=== PATIENT | female | born 1960 | race Caucasian/White ===

== ENCOUNTER 2018-08-25 11:11 | Emergency (ER) | payer BC ==
[2018-08-25 11:32] VITALS: BP 153/91
--- NOTE | 2018-08-25 13:13 | UC ---
Skin Complaint HPI - HPI Summary HPI Summary: 57-year-old presents with a tick bite to her right chest wall. States she found the tick this morning and thinks that it was on for less than 24 hours since she removed another tick from her dog last evening. States the tick was not engorged. Her significant other attempted to remove however she thinks there is some retained mouthparts at the site of the bite. Denies fever, chills , flulike illness, myalgias, joint pain or swelling. - History of Current Complaint Chief Complaint: UCSkin Time Seen by Provider: 08/25/18 13:09 Stated Complaint: TICK BITE Pain Intensity: 4 - Allergy/Home Medications Allergies/Adverse Reactions: Allergies Allergy/AdvReac Type Severity Reaction Status Date / Time No Known Allergies Allergy Verified 08/25/18 11:32 Home Medications: Home Medications Estrogens, Conjugated [Premarin] 0.3 mg PO DAILY 08/25/18 [History Confirmed ] Review of Systems Constitutional: Negative Skin: Other - See HPI Respiratory: Negative Cardiovascular: Negative Musculoskeletal: Negative Is Patient Immunocompromised?: No All Other Systems Reviewed And Are Negative: Yes PMH/Surg Hx/FS Hx/Imm Hx Previously Healthy: Yes - Denies significant PMH - Surgical History Surgical History: Yes Surgery Procedure, Year, and Place: hysterectomy - Family History Family History: Noncontributory - Social History Occupation: Retired Lives: With Family Alcohol Use: Weekly Substance Use Type: None Smoking Status (MU): Never Smoked Tobacco Physical Exam Triage Information Reviewed: Yes Appearance: Well-Appearing, No Pain Distress, Well-Nourished Vital Signs: Initial Vital Signs Temp 98.6 F 08/25/18 11:27 Pulse 76 08/25/18 11:27 Resp 18 08/25/18 11:27 BP 153/91 08/25/18 11:27 Pulse Ox 99 08/25/18 11:27 Vital Signs Reviewed: Yes Respiratory: Positive: Lungs clear, Normal breath sounds Cardiovascular: Positive: RRR, No Murmur Musculoskeletal Exam: Normal Neurological: Positive: Alert Skin: Positive: Other - Single 1 cm erythematous, circular lesion with central excoriation and a single retained mouthpart to right chest wall. The mouth part was partially removed using splinter forceps. Very small piece remained superficially beneath the skin. Course/Dx - Course Course Of Treatment: 57 year old female with report of tick bite to right chest wall. She report that tick was on for less than 24 hours and not engorged however there was a retained mouth part from her significant other's attempt to remove and she was concerned that this would increase her risk of dejah Lyme. The retained mouth part was removed however there appeared to be a very small piece remaining under the skin that could not be removed. Patient was counseled that her history suggests a very small risk of Lyme transmission even with the retained mouthpart and that prophylactic treatment was not indicated. Patient was insistent upon treatment therefore single dose of doxycyline 200 mg was administered. She was further counseled that there was still need to monitor for symptoms of Lyme over next several weeks. Verbalizes understanding and agrees with POC. - Diagnoses Provider Diagnoses: Tick bite right chest, elevated blood pressure reading Discharge - Sign-Out/Discharge Documenting (check all that apply): Patient Departure All imaging exams completed and their final reports reviewed: No Studies - Discharge Plan Condition: Stable Disposition: HOME Patient Education Materials: Tick Bite (ED) Referrals: Day Chirinos MD [Primary Care Provider] - (For recheck of blood pressure) Additional Instructions: You were given a dose of doxycycline 200 mg as a prevention for Lyme disease. This is has been shown to be highly effective however you still need to monitor for signs of Lyme disease over the next several weeks including a bulls eye rash , fever, fatigue, flu-like illness, muscles aches, joint pain or swelling. You should seek medical attention if any of these develop. Your blood pressure was elevated in the clinic today. It is recommended that you follow up with your primary care provider within 4 weeks to have this rechecked. - Billing Disposition and Condition Condition: STABLE Disposition: Home
[2018-08-25] MEDS ORDERED: DOXYcycline CAP(*) 100 MG PO ONE (13:33)
== END 2018-08-25 13:51 | disposition home or self-care (01) ==
LOC: UCEAST 11:11
DX: S20.361A Insect bite (nonvenomous) of right front wall of thorax, initial encounter (principal); W57.XXXA Bitten or stung by nonvenomous insect and other nonvenomous arthropods, initial encounter; Y92.9 Unspecified place or not applicable
CPT/HCPCS: 99212; A9270-GY; G0463

== ENCOUNTER 2019-09-03 10:51 | Emergency (ER) | payer BC ==
--- OUTSIDE RECORDS SUMMARY | 2019-09-03 10:58 | XMS REPORT | Continuity of Care Document ---
:1960 External Reference #:[id number] Author Name Malena Alberts N.P. (transmitted by agent of provider Jodee Lima) Address [address] [place] [address], [place] [address] Care Team Providers Name Role Phone Malena Alberts NP - Family Care Team Information Aerobics Instructor [phone] Day Chirinos MD - Internal Care Team Information Aerobics Instructor [phone] Medicine Problems Active Problems Provider Date Hyperlipidemia Malena Alberts, N.P. Onset: 08/07/2011 Non-toxic uninodular goiter Malena Alberts, N.P. Onset: 08/07/2011 Social History Type Date Description Comments Sex Unknown ETOH Use Currently consumes Wine - 2 glasses per alcohol day Tobacco Use Start: Unknown End: Patient is a former Sporadic, quit many Unknown smoker years ago Smoking Status Reviewed: 08/16/19 Patient is a former Sporadic, quit many smoker years ago Exercise Exercises regularly Walks 3 times weekly Type/Frequency Allergies, Adverse Reactions, Alerts Active Allergies Reaction Severity Comments Date Cephalexin Nausea and Vomiting Severe 03/16/2012 Inactive Allergies NKDA 08/28/2010 Medications Active Medications SIG Qnty Indications Ordering Date Provider Zolpidem Tartrate take one tablet 30tabs G47.00 Malena Alberts, 08/11/2018 5mg by mouth at N.P. Tablets bedtime maximum daily dose = 1 Cyclobenzaprine HCL take one tablet 30tabs Malena Alberts, 08/02/2015 5mg by mouth at N.P. Tablets bedtime as needed for muscle spasms Fluticasone Propionate 1 spray in each 1bottle Z00.01 Malena Alberts, 08/02 nostril in in N.P. 50mcg/Act Suspension the morning Nasal Saline 2 sprays in 1ml 461.0 Marco A Cam 01/02/2012 0.65% Solution each nostril 5 [place],FACP times a day Jocelin apply one patch 24units Malena Alberts, 07/20/2010 0.025mg/24HR to skin twice N.P. Patches Biweek weekly Glucosamine Sulfate 2 po qd Unknown 500mg Capsules Coq-10 daily Unknown 10mg Capsules Fish Oil Burp-Less po qd 60caps Unknown 1000mg Capsules Herman/Mag Unknown Tablets Immunizations CPT Code Status Date Vaccine Reaction Lot # [id number] Given 08/11/2018 Influenza Virus Vaccine, [id number] Quadrivalent, Split, Preservative Free [id number] Given 08/08/2017 Influenza Virus Vaccine, No immediate [id number] Quadrivalent, Split, reaction...jh Preservative Free 11077 Given 08/06/2016 Influenza Virus Vaccine, no reaction noted ... hh [id number] Quadrivalent, Split, Preservative Free [id number] Given 08/02/2015 Influenza Virus Vaccine, [id number] Quadrivalent, Split, Preservative Free 09641 Given 04/02/2012 Zoster (Zostavax) [id number] 03368 Given 09/05/2009 Tdap - Tetanus/Diptheria/Acellular Pertussis 95065 Given 09/05/2009 Influenza Virus 3Yrs & Over Vital Signs Date Vital Result Comment 08/16/2019 2:21pm Height 63.5 inches 5'3.50" Weight 166.00 lb Heart Rate 71 /min BP Systolic 130 mmHg BP Diastolic 77 mmHg Body Temperature 98.3 F O2 % BldC Oximetry 98 % BMI (Body Mass Index) 28.9 kg/m2 08/11/2018 2:19pm Height 63.5 inches 5'3.50" Weight 166.00 lb Heart Rate 70 /min BP Systolic 128 mmHg BP Diastolic 75 mmHg Body Temperature 98.3 F O2 % BldC Oximetry 97 % BMI (Body Mass Index) 28.9 kg/m2 Results Test Date Facility Test Result H/L Range Note Lipid Profile 08/06/2019 [facility] Triglycerides 241 mg/dL 1 (Trig/Chol/HDL) [address] [place] [address] [phone] Cholesterol 228 mg/dL 2 HDL Cholesterol 49.8 mg/dL 3 LDL Cholesterol 130 mg/dL 4 Comp Metabolic 08/06/2019 [facility] Sodium 135 mmol/L Normal 135-145 Panel [address] [place] [address] [phone] Potassium 4.3 mmol/L Normal 3.5-5.0 Chloride 100 mmol/L Low 101-111 Co2 Carbon Dioxide 29 mmol/L Normal 22-32 Anion Gap 6 mmol/L Normal 2-11 Glucose 86 mg/dL Normal 70-100 Blood Urea Nitrogen 10 mg/dL Normal 6-24 Creatinine 0.73 mg/dL Normal 0.51-0.95 BUN/Creatinine Ratio 13.7 Normal 8-20 Calcium 9.3 mg/dL Normal 8.6-10.3 Total Protein 6.8 g/dL Normal 6.4-8.9 Albumin 4.1 g/dL Normal 3.2-5.2 Globulin 2.7 g/dL Normal 2-4 Albumin/Globulin Ratio 1.5 Normal 1-3 Total Bilirubin 0.70 mg/dL Normal 0.2-1.0 Alkaline Phosphatase 54 U/L Normal 34-104 Alt 13 U/L Normal 7-52 Ast 17 U/L Normal 13-39 Egfr Non- 81.3 >60 Egfr 98.4 >60 5 Laboratory 08/06/2019 [facility] TSH (Thyroid 0.36 Normal 0.34 -5.60 6 test finding [address] [facility] Stim Horm) mcIU/[place] [address] [phone] 1 Desirable: <150 Borderline High: 150-199 High: 200-499 Very High: >500 2 Desirable: <200 Borderline High: 200-239 High: >239 3 Low: <40 Desirable: 40-60 High: >60 4 Desirable: <100 Near Optimal: 100-129 Borderline High: 130-159 High: 160-189 Very High: >189 5 Because ethnic data is not always readily available, this report includes an eGFR for both -Americans and non- Americans. The National Kidney Disease Education Program (NKDEP) does not endorse the use of the MDRD equation for patients that are not between the ages of 18 and 70, are , have extremes of body size, muscle mass, or nutritional status, or are non- or non-. According to the National Kidney Foundation, irrespective of diagnosis, the stage of the disease is based on the level of kidney function: Stage Description GFR(mL/min/1.73 m(2)) 1 Kidney damage with normal or decreased GFR 90 2 Kidney damage with mild decrease in GFR 60-89 3 Moderate decrease in GFR 30-59 4 Severe decrease in GFR 15-29 5 Kidney failure <15 (or dialysis) 6 FASTING 10 HOUR Procedures Date Code Description Status 09/08/2018 [id number] Mammogram Completed 09/04/2017 [id number] Mammogram Completed 08/29/2016 [id number] Mammogram Completed 08/24/2015 [id number] Mammogram Completed 10/08/2013 [id number] Mammogram Completed 04/16/2012 [id number] Mammogram Completed 11/30/2010 [id number] Mammogram Completed 10/03/2009 [id number] Colonoscopy Completed 09/15/2008 [id number] Bone Mineral Density Test Completed Medical Devices Description No Information Available Encounters Description No Information Available Assessments Date Code Description Provider 08/16/2019 Z00.00 Encounter for general adult medical Malena Alberts N.P. examination without abnormal findings 08/16/2019 Z12.31 Encounter for screening mammogram for Malena Alberts N.P. malignant neoplasm of breast 08/16/2019 E78.00 Pure hypercholesterolemia, unspecified Malena Alberts N.Jaylene 08/16/2019 E04.1 Nontoxic single thyroid nodule Malena Alberts N.Jaylene 08/16/2019 M25.512 Pain in left shoulder Malena Alberts N.P. Plan of Treatment 08/16/2019 - Malena Alberts N.P.Z00.00 Encounter for general adult medical examination without abnormal findingsComments:For your routine health maintenance: I encourage you to continue with regular exercise and healthy nutrition. You had a pap smear in 2015, I will repeat this next year.You are due for a screening colonoscopy. I will send a referral to the GI specialist.Their office will contact you to arrange an appointment. You have received your Tetanus immunization today. Your arm may be sore for a few days. This is good for 10 years. There is a new shingles vaccine available, Shingrix. This is a series of 2 injections given 2 - 6 months apart. This is available at the pharmacy and I urge you to get this. I encourage you to get a flu shot soon.Referral:Frandy Iglesias MD, GastroenterologyImmunizations/Injections: Tetanus And Diptheria (Td) For Adult Use Preservative FreeZ12.31 Encounter for screening mammogram for malignant neoplasm of breastComments:I have ordered your routine screening mammogram. The imaging department will give you your results at the time of your visit. I encourage you to do self exams. If you should notice any masses or thickening, please give the office a call.E78.00 Pure hypercholesterolemia, unspecifiedComments:Your recent labs to check your cholesterol showed that your cholesterol levels are elevated. When I put your numbers into the risk assessment tool your 10 year risk for a cardiovascular event is 3.9%. The [employer] does not advise treatment for this risk level. I encourage you to follow a low cholesterol diet and to continue to supplement with Fish Oil and Co Q 10..E04.1 Nontoxic single thyroid noduleComments:Your thyroid hormone level is in normal range. I will defer an ultrasound until next year.M25.512 Pain in left shoulderComments:For your left shoulder pain: Continue your current management.If you do not gradually improve , please contact the office. Functional Status Description No Information Available Mental Status Description No Information Available Referrals Refer to Reason for Referral Status Appt Date Frandy Iglesias MD Patient is due for screening colonoscopy Created [address] [place] [address] [phone]
--- NOTE | 2019-09-03 11:03 | UC ---
Skin Complaint HPI - HPI Summary HPI Summary: 58 yo female presents with tick bite. She tells me that last night she noticed a tick attached to her right thigh. Unsure how long it was attached, but thinks it was around 12 hours. She was able to remove the tick and brought it with her today. [place] - this concerns her for lyme disease. She has no symptoms at this time. - History of Current Complaint Time Seen by Provider: 09/03/19 11:03 Stated Complaint: TICK BITE Hx Obtained From: Patient Current Severity: None - Allergy/Home Medications Allergies/Adverse Reactions: Allergies Allergy/AdvReac Type Severity Reaction Status Date / Time cephalexin Allergy Intermediate Nausea Verified 09/03/19 11:11 PMH/Surg Hx/FS Hx/Imm Hx - Additional Past Medical History Additional PMH: None - Surgical History Surgical History: Yes Surgery Procedure, Year, and Place: hysterectomy - Family History Known Family History: Positive: Non-Contributory Family History: Noncontributory - Social History Lives: With Family Alcohol Use: Weekly Substance Use Type: None Smoking Status (MU): Never Smoked Tobacco Review of Systems All Other Systems Reviewed And Are Negative: No Constitutional: Positive: Negative Skin: Positive: Other - Tick bite Respiratory: Positive: Negative Cardiovascular: Positive: Negative Neurovascular: Positive: Negative Musculoskeletal: Positive: Negative Neurological: Positive: Negative Psychological: Positive: Negative Physical Exam - Summary Physical Exam Summary: GENERAL: NAD. WDWN. No pain distress. SKIN: RIGHT THIGH: there is a 7mm diameter of mild erythema and edema with central 1mm area of superficial skin loss. No streaking, bleeding, or drainage. NECK: Supple. Nontender. No lymphadenopathy. CHEST: No accessory muscle use. Breathing comfortably and in no distress. CV: Pulses intact. Cap refill <2seconds NEURO: Alert. PSYCH: Age appropriate behavior. Triage Information Reviewed: Yes Vital Signs: Vital Signs: Temp Pulse Resp BP Pulse Ox 98.7 F 81 18 141/81 98 09/03/19 11:03 09/03/19 11:03 09/03/19 11:03 09/03/19 11:03 09/03/19 11:03 Vital Signs Reviewed: Yes Course/Dx - Course Course Of Treatment: Tick not engorged. Discussed role of prophylactic doxycycline and pt elected to have this today. Advised to monitor for signs/symptoms of lyme and be rechecked if she develops these - Diagnoses Provider Diagnosis: Tick bite Discharge ED - Sign-Out/Discharge Documenting (check all that apply): Patient Departure All imaging exams completed and their final reports reviewed: No Studies - Discharge Plan Condition: Stable Disposition: HOME Patient Education Materials: Lyme Disease (ED), Tick Bite (ED) Referrals: Malena Alberts NP [Primary Care Provider] - Additional Instructions: TICK BITE: You have been bitten by a tick. Once the tick is removed, these "bites" usually cause no problems. Tick fever, tick paralysis, Orestes Spotted fever, and Lyme disease are uncommon -- but you should mention this tick bite to your doctor if you develop unusual symptoms in the next several weeks. If you develop any of the following, please see your physician promptly: (1) Fever, chills, or generalized malaise associated with a headache. (2) A red round area at the site of the bite (or elsewhere) (3) Joint pain, joint swelling or generalized weakness. (4) Redness, swelling, or drainage at the site of the bite. Ticks do not have a typical "head" attached to their body. There are mouth parts sticking out which they use to feed. If there are mouth parts left behind in the wound there is NO increased risk of Lyme infection or disease transmission. If mouth parts remain after tick removal, the best thing to do is apply warm soaks to the area 3-4 times per day to encourage the skin to expel the foreign material. WHEN A TICK IS NOT ENGORGED AND HAS BEEN ON LESS THAN 24 HOURS - THE RISK FOR LYME IS NEGLIGIBLE. YOU CAN REMOVE THE TICK AND OBSERVE THE AREA ON YOUR OWN. - Billing Disposition and Condition Condition: STABLE Disposition: Home
[2019-09-03] MEDS ORDERED: DOXYcycline CAP(*) 100 MG PO ONE (11:09)
[2019-09-03 11:12] VITALS: BP 141/81
== END 2019-09-03 11:20 | disposition home or self-care (01) ==
LOC: UCEAST 10:51
DX: S70.361A Insect bite (nonvenomous), right thigh, initial encounter (principal); W57.XXXA Bitten or stung by nonvenomous insect and other nonvenomous arthropods, initial encounter; Y92.9 Unspecified place or not applicable; Z88.1 Allergy status to other antibiotic agents
CPT/HCPCS: 99212; A9270-GY; G0463